=== PATIENT | male | born 1950 | race Caucasian/White ===

== ENCOUNTER → 2024-10-15 09:12 | Outpatient (REF) | payer MEDICARE, OTHER, SELFPAY ==
--- NOTE | 2024-08-16 11:39 | PN.DIAED02 ---
Referral
DSME Class Series Code: [id number]
Referred For: Diabetes Self-Management Training, Medical Nutrition Therapy, Self-Blood Glucose Monitoring, Long-Term Complication Instruction, Accute Complication Instruction, Continuous Glucose Monitoring, Medication management, Care Coordination,
Disease Management
PHI Release Authorization Form Signed: Yes
Patient Problems:
Current Active Problems
Problem Status Onset
Type 2 diabetes mellitus with hyperglycemia Chronic ~05/09/23
Demographic
(1) Type 2 diabetes mellitus with hyperglycemia
Status: Chronic Onset Date: ~05/09/23
Qualifiers:
Diabetes mellitus computer terminal operator insulin use: without computer terminal operator use Qualified Code(s): E11.65 - Type 2 diabetes mellitus with hyperglycemia
Code(s): E11.65 - Type 2 diabetes mellitus with hyperglycemia
Patient's primary language-: Lithuanian
Education: Advanced college degree
Occupation: Retired
- Social
Primary Support Person: Self & spouse
Primary Care Takers: Self & spouse
Living Arrangements: Self & spouse
- Learning Methods
Preferred Method: Hands-on demonstration
Barriers to Learning: None
Glycemic Control
- Blood Glucose Monitoring Assessment
Date: 08/16/24
Blood glucose monitoring at home: Yes
Monitor Brands: Freestyle
Frequency: 1x per day
Time: fasting
- Ketone Monitoring Assessment
Patient monitoring ketone: No
- Hyperglycemia Assessment
Experiences Hyperglycemia: No
- Hypoglycemia Assessment
Patient carries glucose source: No
Patient experiences hypoglycemia: No
- Blood Glucose Monitoring Results
Source: self-report
- Hemoglobin A1c
Date: 08/07/24
A1C Percentage (%): 6.6
Medical History of Diabetes
Family Diabetes History: Unknown
Previous Diabetes Education: No
Previous visit with Dietitian: No
Complications/Comorbidity/Specialist: Hypertension (HCTZ 25 MG QD, AVAPRO 300 MG (2)), Hyperlipidemia (ROSUVASTATIN 20 MG QD, OMEGA 3 ACID ETHYL JÚNIOR 1 GRAM BID), Metabolic (T2D: JARDIANCE 10 MG, METFORMIN ER 500 MG QD), Other / symptoms (BPH:
FINASTERIDE 5 MG QD, TAMUSLOSIN 0.8 MGOAB: DESTROL 4 MG QD, ASPIRIN 81 MG)
Measures
- Anthropometrics
Height: 6 ft 1 in
Actual Weight: 269 lb 12.8 oz
- Blood Pressure / Pulse
Blood pressure: 148/71
Pulse: 68
- Diabetes Management
Medical Management for Diabetes: Complete physical exam (05/07/2024), Dental exam (04/10/2024), Dilated eye exam (05/07/2024), Other ([facility] DATES: 09/17/2020, 10/19/2020, 12/11/2020, 04/21/2021)
Self-Care
- Tobacco Usage
Do you now, or have you ever smoked?: Current every day smoker
Amount (per day): Other (1 CIGAR A DAY)
Smoking Cessation Referral and/or Information provided: No
- Alcohol & Drugs Usage
Drinks Alcohol: Yes
Amount/day: Social Occasions
- Meals & Dining
Meals & Dining: Patient skips meals: No, Food Intolerance / Allergy: No, Cultural / Yazdanism Dietary Needs: No
Primary Food Bakery Worker Conveyor Line: Self
Primary Lightning Rod Installer: Self & Spouse
Dining Out Frequency: 1-3x per week
- Physical Activity
Physical Limitation: No
Patient participates in physical Activity: Yes
Activity Types: Biking
Duration: 21-30 minutes
Frequency: 3-5x per week
- Self Foot-Care
Foot Problems: None
Performs Self Foot-Exam: Yes
Frequency: Daily
- Patient-Self Assessment
Diabetes Knowledge: Fair
Feelings About Diabetes: Overwhelmed / Confused
General Health: Good
Importance of Health: Extremely
Stress Level: Medium
Diabetes Interferes With:: Nothing
Barriers to Diabetes Management: Nothing
Depression Survey Score: 0
- Diabetes Identification
Carries Diabetes Identification: No
Diabetes Identification Information Provided: Yes
Care Plan
- Education Needs
Patient Education Needs: Diabetes disease process, Chronic complications, Acute complications, Medication, Monitoring, Physical activity, Psychosocial Adjustment, Nutritional management, Goal setting & problem solving
Recommended Diabetes Training Program based on assessment: Outpatient Diabetes Education Program
- Plan of Care
Plan of Care:
08/16/2024 INITIAL DSME MEETING
Met with Mr. Lozoya today for registration and initiation of Diabetes Self-management. Pt was recommended by his PCP. 6 months ago his HbA1c was 8.4%, August A1C of 6.6%. He checks glucose once daily in the AM, results typically 151-160 mg/dL. He
will also check 2 hours postprandial with varying meals. We also discussed strategies to lower AM glucose such as sleep improvement, walking after dinner, including small carb portion with protein snack to prevent rebound hypoglycemia.
We discussed complications of DM, blood sugar goals fasting and 2 hours postprandial. We discussed the importance of physical activity. He is very active wtih ADL's and uses stationary bike 5 days a week for 25 minutes. I educated Alberto that
exercise can help lower glucose values, especially after meals and goals are 30 minutes most days of the week. He set a goal to walk after dinner on nights where he does not have volunteer meetings.
He snacks on walnuts and cashews after dinner. Is up several times a night to urinate, and feels moderate stress in caring for self who has mild dementia and is moderately disabled. We discussed that sleeping less than 5 hours at a time and stress
can increase glucose values.
He is also taking the following OTC medications and supplements: Jessica 180 mg QD seasonally, Multivitamin 1 tablet AM, Vitamin C 500 mg BID, D3 125 mcg PM, Magnesium 500 mg QD, Zinc 50 mg, Melatonin 3 mg PM, Vitamin E.
I advised Mr. Lozoya to his insurance companies for for cost and coverage of DSME course, he states he looked into this and between Medicare and [employer] he states it will be covered. Alberto has office contact information if he has any questions
prior to class.
--- NOTE | 2024-08-16 13:02 | PN.DIAED04 ---
Education Record
- Education Record
Class Attended: Other (DSME INITIAL MEETING)
[facility] Class Series Code: [id number]
Instructor: Nurse Practitioner (BRE Schneider)
Pre-Program Knowledge: No knowledge
Pre-Test Score (%): 58
Goals
- Goal 1
Being Active: Exercise 30 minutes-5 times per week (currently biking 25 min/day, will add walk after dinner)
Goals To Be Evaluated: Exercise 30 mins-5x/week
- Goal 2
Healthy Eating: Make better food choices
Goals To Be Evaluated: Make better food choices
- Goal 3
Monitoring: Monitor more often (will check 2 hours post prandial in addition to fasting AM)
Goals To Be Evaluated: Monitor more often
--- NOTE | 2024-10-16 12:35 | PN.DIAED14 ---
This is to notify you that your patient with diabetes, LETI GONZALEZ ( 1950), has enrolled in our diabetes self-management classes that are being held at [facility].
These classes will include an introduction to diabetes, diet, medication, exercise and prevention of complications. At the end of our class series, you will receive a report of your patient's participation and progress for your records.
Please contact me at the Diabetes Center, , if there is any particular information regarding your patient that might be helpful to me.
Sincerely,
Andrés DÍAZ-, [facility]
--- NOTE | 2024-10-16 12:35 | PN.DIAED04 ---
Education Record
- Education Record
Class Attended: Class 1
DSME Class Series Code: [id number]
Instructor: Nurse Practitioner (BRE Schneider)
Class Curriculum:
Outpatient Diabetes Education Program:
Class 1 (120 minutes)
Describe the diabetes disease process and treatment options
Diabetes management
Develop personal strategies to promote health and behavior change
Integrate psychosocial adjustment for daily living
Monitor blood glucose and other parameters. Interpret and use the results for self-management decision making
Prevent, detect, and treat acute complications
Class Length (mins): 120
Post-Class 1 Test Score (%): 88
== END ==
LOC: DES 09:12
PROVIDERS: ATTENDING PHYSICIAN Family Medicine
DX: E11.65 Type 2 diabetes mellitus with hyperglycemia (principal)
CPT/HCPCS: 99078

== ENCOUNTER → 2024-10-22 09:29 | Outpatient (REF) | payer MEDICARE, OTHER, SELFPAY ==
--- NOTE | 2024-10-23 10:21 | PN.DIAED04 ---
Education Record
- Education Record
Class Attended: Class 2
DSME Class Series Code: [id number]
Instructor: Registered Dietitian (Cindy Day, RD, LDN, CDE)
Class Curriculum:
Outpatient Diabetes Education Program:
Class 2 (120 minutes)
Incorporate nutritional management into lifestyle
Understanding nutritional value
Understanding carbohydrate counting
Class Length (mins): 120
== END ==
LOC: DES 09:29
PROVIDERS: ATTENDING PHYSICIAN Family Medicine
DX: E11.65 Type 2 diabetes mellitus with hyperglycemia (principal)
CPT/HCPCS: 99078

== ENCOUNTER → 2024-10-29 09:52 | Outpatient (REF) | payer MEDICARE, OTHER, SELFPAY ==
--- NOTE | 2024-10-31 11:35 | PN.DIAED04 ---
Education Record
- Education Record
Class Attended: Class 3
DSME Class Series Code: [id number]
Instructor: Registered Dietitian (Cindy Day, RD, LDN, CDE)
Class Curriculum:
Outpatient Diabetes Education Program:
Class 3 (120 minutes)
Incorporate nutritional management into lifestyle
Class Length (mins): 120
Post-Class 2 & 3 Test Score (%): 94
== END ==
LOC: DES 09:52
PROVIDERS: ATTENDING PHYSICIAN Family Medicine
DX: E11.65 Type 2 diabetes mellitus with hyperglycemia (principal)
CPT/HCPCS: 99078

== ENCOUNTER → 2024-11-05 10:16 | Outpatient (REF) | payer MEDICARE, OTHER, SELFPAY ==
--- NOTE | 2024-11-06 10:42 | PN.DIAED04 ---
Education Record
- Education Record
Class Attended: Class 4
DSME Class Series Code: [id number]
Instructor: Nurse Practitioner (BRE Schneider)
Class Curriculum:
Outpatient Diabetes Education Program:
Class 4 (120 minutes)
Develop personal strategies to promote health and behavior change
Incorporate physical activity into lifestyle
Utilize medications safety for maximum therapeutic effectiveness
Understand different medication/insulin mechanism of action
Preparing for travel
Class Length (mins): 120
Post-Class 4 Test Score (%): 87
== END ==
LOC: DES 10:16
PROVIDERS: ATTENDING PHYSICIAN Family Medicine
DX: E11.65 Type 2 diabetes mellitus with hyperglycemia (principal)
CPT/HCPCS: 99078

== ENCOUNTER → 2024-11-12 09:10 | Outpatient (REF) | payer MEDICARE, OTHER, SELFPAY ==
--- NOTE | 2024-11-14 09:38 | PN.DIAED04 ---
Education Record
- Education Record
Class Attended: Class 5
DSME Class Series Code: [id number]
Instructor: Registered Nurse (Shazia Medrano RN)
Class Curriculum:
Outpatient Diabetes Education Program:
Class 5 (120 minutes)
Prevent, detect, and treat acute complications
Prevent, detect, and treat chronic complications through risk reduction
Develop personal strategies to address psychosocial issues and concerns
Development of diabetes self-management support plan
Letter to physician with DSMS plan attached sent
Class Length (mins): 120
Post-Program Knowledge: Demonstrates competency
Post-Test Score (%): 88
Post-Program Assessment
- Post-Program Assessment
Actual Weight: 262 lb 9.6 oz
Blood pressure: 130/70
Post-Program Depression Survey Score: 2
Reviewing Previous Goals?: Yes
Pre-Program Depression Survey Score: 0
- Goals 1 Evaluation
Goals To Be Evaluated: Exercise 30 mins-5x/week
- Goals 2 Evaluation
Goals To Be Evaluated: Make better food choices
- Goals 3 Evaluation
Goals To Be Evaluated: Monitor more often
--- NOTE | 2024-11-14 09:39 | PN.DIAED16 ---
This is to notify you that your patient with diabetes, LETI GONZALEZ ( 1950), has attended the entire series of Diabetes Self-Management Education Classes.
Class 1 (120 minutes): Diabetes Overview - monitoring, stress/psychosocial adjustment, support, goal setting
Class 2 (120 minutes): Meal Planning - serving sizes, menu plans
Class 3 (120 minutes): Introduction to Carbohydrate Counting, Analyzing Food Labels
Class 4 (120 minutes): Medication, Exercise and Activity
Class 5 (120 minutes): Sick Day Management, Strategies to Reduce Complications, Problem Solving, Resources
The following behavioral goals were identified:
Exercise 30 mins-5x/week
Make better food choices
Monitor more often
A follow-up call will be made within three to six months to evaluate attainment of these goals and to check post-program Hemoglobin A1c and overall progress. All class participants are encouraged to contact me if I can be any further assistance in
learning how to manage their diabetes.
Sincerely,
Andrés DÍAZ-, [facility]
== END ==
LOC: DES 09:10
PROVIDERS: ATTENDING PHYSICIAN Family Medicine
DX: E11.65 Type 2 diabetes mellitus with hyperglycemia (principal)
CPT/HCPCS: 99078